=== PATIENT | male | born 1955 | race Caucasian/White ===

== ENCOUNTER → 2019-09-24 08:18 | Outpatient (CLI) | payer MEDICAID | END | disposition home or self-care (01) | LOC: D.RT 08:18 | PROVIDERS: ATTEND Internal Medicine Hematology & Oncology | DX: R91.1 Solitary pulmonary nodule (principal) ==

== ENCOUNTER → 2019-10-14 12:26 | Outpatient (CLI) | payer MEDICAID | END | disposition home or self-care (01) | LOC: D.US 12:26 | PROVIDERS: ATTEND Thoracic Surgery (Cardiothoracic Vascular Surgery) | DX: R59.0 Localized enlarged lymph nodes (principal) ==

== ENCOUNTER → 2019-10-20 11:36 | Outpatient (CLI) | payer MEDICAID ==
--- NOTE | ~2019-10-20 | EC ---
PATIENT:KEM JAIMESS DATE OF SERVICE: 10/20/19 SEX: M MEDICAL RECORD: [id number] DATE OF : [birth year] [facility] AGE OF PATIENT: 64 ADMISSION DATE: 10/20/19 REFERRING PHYSICIAN: INTERPRETING PHYSICIAN: ROSE MARIE MONTERO MD ECHOCARDIOGRAM REPORT ECHO CHARGES 4 ECHO COMPLETE Date: 10/20/19 CLINICAL DIAGNOSIS: GRAY/ANGINA/MURMUR H/O CAD/HTN ECHOCARDIOGRAPHIC MEASUREMENTS (adult normal given) AC root (d.<3.7cm) 3.6 cm LV Septum d (<1.2 cm> 1.8 cm Valve Excursion 2.0 cm LV Septum (systole) 2.3 cm Left Atria (s.<4.0cm> 3.5 cm LVPW d(<1.2cm) 1.6 cm RV (d.<2.3cm) 2.2 cm LVPW (sytole) 2.1 cm LV diastole(<5.6CM) 5.7 cm MV E-F(>70mm/sec) cm LV systole 3.6 cm LVOT Diameter 2.4 cm MV exc.(>10mm) cm Est.ejection fraction (50-75%) % DOPPLER: LVIT cm/sec A 104 cm/sec E 88.0 cm/sec LA cm/sec RVSP 21.4 mmHg LVOT 84.0 cm/sec AOP1/2T m/s Asc. Ao 149 cm/sec RVOT 80.0 cm/sec RA cm/sec PA 114 cm/sec AV Gradient Peak 8.8 mmHg AV Mean 4.0 mmHg AV Area 2.7 cm MV Gradient Peak 6.4 mmHg MV Mean 2.0 mmHg MV Area cm COMMENTS: OP - HC Regenerator Operator: 1 JUS SUZANNA Jewel Bearing Broacher: 3 Dr. Ulloa TAPE# PACS Pericardial Effusion N DATE OF SERVICE: Adequate 2D, color flow imaging, spectral Doppler, and M-Mode. LVH is present. LV internal dimensions are normal. Wall motion is normal. EF is greater than or equal to 55%. Aortic valve is tricuspid. No evidence of stenosis by Doppler interrogation. Left atrium is normal at 3.5 cm. Mitral valve shows no prolapse. Trace MR. Right-sided chambers are grossly normal. Trace TR. ECHOCARDIOGRAM REPORT [id number] MASTERNICOLÁS Barba TRANSINT:[id number] Voice Confirmation ID: [id number] DOCUMENT ID: [id number] ROSE MARIE MONTERO MD CC: [id number] DICTATION DATE: 10/21/191412 SOCK LINER: 10/21/191906 DEP CLI 10/20/19 [facility] [address] [place] [address]
== END | disposition home or self-care (01) ==
LOC: D.HCCECHO 11:30
PROVIDERS: ATTEND Internal Medicine Interventional Cardiology
DX: R01.1 Cardiac murmur, unspecified (principal)

== ENCOUNTER → 2019-10-22 08:36 | Outpatient (CLI) | payer MEDICAID | END | disposition home or self-care (01) | LOC: D.HCCECHO 10-19 11:00 | PROVIDERS: ATTEND Internal Medicine Cardiovascular Disease | DX: R01.1 Cardiac murmur, unspecified (principal); I25.10 Atherosclerotic heart disease of native coronary artery without angina pectoris ==

== ENCOUNTER 2019-11-04 11:56 | Outpatient (CLI) | payer MEDICAID ==
[~2019-11-04] VITALS: Ht 182.9 cm; Wt 75.0 kg
--- NOTE | ~2019-11-04 | HEMODYNAMI ---
PATIENT:NICOLÁS JAIMES MEDICAL RECORD: [id number] : 59 LOCATION:[facility] ADMISSION DATE: 11/04/19 Generatedon:11/04/201915:55 Patient name: NICOLÁS JAIMES Patient #: [id number] SSN: : 1955 Date of study: 11/04/2019 Page: Of Hemodynamic Procedure Report Patient Data Patient Demographics Procedure consent was obtained First Name: NICOLÁS Gender: Male Last Name: FIONA : 1955 Patient #: [id number] Age: 64 year(s) Race: Additional ID: [id number] Contact details Address: [address] [place] [address] State: [place] City: [place] Zip code: [address] Past Medical History Allergies: No known allergies Admission Admission Data Admission Date: 11/04/2019 Admission Time: 11:56 Arrival Date: 11/04/2019 Arrival Time: 0:00 Height (in.): 72.05 BSA: 1.93 (m2) Height (cm.): 183 BMI: 21.5 (kg/m2) Weight (lbs.): 158.73 Weight (kg.): 72 Lab Results Lab Result Date: 11/04/2019 Lab Result Time: 0:00 Biochemistry Name Units Result Min Max BUN mg/dl 17 --(---*)-- 7 18 Creatinine mg/dl 1.1 --(--*-)-- 0.6 1.3 eGFR ml/min 72 *-(----)-- 90 120 NONAFRICAN CBC Name Units Result Min Max Hematocrit % 38.5 *-(----)-- 42 54 Hemoglobin g/dl 12.4 *-(----)-- 13.5 17.5 Procedure Procedure Types Cath Procedure Diagnostic Procedure C [facility] w/Coronaries Sedation Charges Moderate Sedation up to 45 minutes PCI Procedure Coronary Stent Coronary Stent Initial Hemochron ACT Test Peripheral Cath Diagnostic Procedure 4-Vessel Bilateral Carotid Arteriogram Procedure Description Procedure Date Procedure Date: 11/04/2019 Procedure Start Time: 14:42 Procedure End Time: 15:32 Procedure Staff Name Function Christopher Rhodes MD Performing Physician Idalia Floyd RT Scrub Steph Lopes RT Monitor Fernanda Moura RN Nurse Indication Recurrent angina Procedure Data Cath Procedure Fluoroscopy Diagnostic fluoroscopy Total fluoroscopy Time: time: 16.3 min 16.3 min Diagnostic fluoroscopy Total fluoroscopy dose: dose: 2595 mGy 2595 mGy Contrast Material Contrast Material Type Amount (ml) Isovue 300 240 Entry Location Entry Primary Successful Side Size Upsize Upsize Entry Closure Succes sful Closure Location (Fr) 1 (Fr) 2 (Fr) Remarks Device Remarks Femoral Right 5 Fr 6 Fr Exoseal artery Short Estimated blood loss: 10 ml Diagnostic catheters Device Type Used For End Catheter Placement MULTIPACK JL 4.0 5Fr Left Coronary catheter Angiography MULTIPACK 3DRC 5Fr Right Coronary catheter Angiography MULTIPACK Pigtail 5 Fr LV Angiography catheter Procedure Complications No complications Procedure Medications Medication Administration Route Dosage 0.9% NaCl I.V. 100 ml/hr Oxygen etCO2 Nasal cannula 2 l/min Lidocaine 2% added to field 20 Heparin Flush Bag added to field 2 bags (1000units/500ml NS) Versed I.V. 2 mg Fentanyl I.V. 50 mcg Heparin Bolus I.V. 5000 units Integrilin (Bolus I.V. 6.2 ml 2mg/ml) Integrilin (Bolus wasted 3.8 ml 2mg/ml) Plavix P.O. 600 mg Fentanyl I.V. 50 mcg Versed I.V. 2 mg Fentanyl I.V. 50 mcg Versed I.V. 2 mg Fentanyl I.V. 50 mcg Lopressor I.V. 2.5 mg Morphine I.V. 4 mg Hemodynamics Rest BSA: 1.93 (m2) HGB: 12.4 (g/dl) O2 Consumption: Estimated: 236.25 (ml/min) O2 Co nsumption indexed: Estimated:122.41 (ml/min/m) Heart Rate: 84 (bpm) Pressure Samples Time Site Value (mmHg) Purpose Heart Use Rate(bpm) 14:52 LV 148/14,20 Snapshot 79 Gradients Valve Time Site Site Mean SEP/DFP Peak To Heart Use 1 2 (mmHg) (sec/min) Peak Rate (mmHg) (bpm) Aortic 14:52 LV AO 84 Snapshots Pre Cath Intra NCS Post Cath Vital Signs Time Heart Resp SPO2 etCO2 NIBP (mmHg) Rhythm Pain Status Sedation Rate (ipm) (%) (mmHg) Level (bpm) 14:24:17 80 16 98 23.9 171/92(139) NSR 0 (11) , No 10(A) pain 14:28:28 78 14 97 27.6 161/86(134) NSR 0 (11) , No 10(A) pain 14:32:44 77 11 96 19.4 163/94(132) NSR 0 (11) , No 10(A) pain 14:37:02 71 15 98 21.6 158/76(115) NSR 0 (11) , No 10(A) pain 14:41:25 69 13 97 29.9 140/72(111) NSR 0 (11) , No 10(A) pain 14:45:31 73 10 96 16.4 131/77(111) NSR 0 (11) , No 10(A) pain 14:50:30 92 11 96 26.9 Measuring NSR 0 (11) , No 10(A) pain 14:50:35 86 11 96 29.9 152/77(108) NSR 0 (11) , No 10(A) pain 14:54:47 79 15 96 29.9 140/90(106) NSR 0 (11) , No 10(A) pain 14:59:03 79 14 95 31.3 142/70(115) NSR 0 (11) , No 10(A) pain 15:03:26 79 14 96 27.6 129/68(108) NSR 0 (11) , No 10(A) pain 15:07:36 78 15 95 29.9 132/74(104) NSR 0 (11) , No 10(A) pain 15:11:39 90 14 96 25.4 148/96(122) NSR 0 (11) , No 10(A) pain 15:16:36 74 11 96 32.9 135/103(119) NSR 8 (11) , 10(A) Utterly horrible 15:20:44 70 10 95 20.9 147/88(122) NSR 4 (11) , 10(A) Distressing 15:24:54 76 11 96 32.1 137/94(125) NSR 4 (11) , 10(A) Distressing 15:29:04 74 12 98 11.2 150/87(113) NSR 6 (11) , 10(A) Intense Medications Time Medication Route Dose Verified Delivered Reason Notes Effectiveness by by 14:32:30 0.9% NaCl I.V. 100 Christopher Fernanda used for ml/hr [facility] Moura procedure MD NARANJO 14:32:35 Oxygen etCO2 2 Christopher Fernanda used for Nasal l/min Fredonia Martell procedure cannula MD NARANJO 14:32:40 Lidocaine 2% added 20ml Crhistopher White for local to vial [facility] anesthetic field MD HERNANDEZ 14:32:44 Heparin Flush added 2 Christopher Guerraory used for Bag to bags [facility] procedure (1000units/500ml field MD HERNANDEZ NS) 14:41:03 Versed I.V. 2 mg Christopher Fernanda for sedation [facility] Mou[facility] MD, RN 14:41:13 Fentanyl I.V. 50 Christopher Fernanda for sedation mcg [facility] William Moura MD, RN 14:47:18 Fentanyl I.V. 50 Christopher Fernanda for sedation [facility] William Moura MD, RN 14:52:49 Heparin Bolus I.V. 5000 Christopher Fernanda for verif ied units [facility] anticoagulation with Dr. HERNANDEZ RN [place] 14:53:02 Integrilin I.V. 6.2 Christopher Fernanda for (Bolus 2mg/ml) ml [facility] Moura antiplatelet RN therapy 14:53:12 Integrilin wasted 3.8 Christopher Fernanda for (Bolus 2mg/ml) ml [facility] Mou[facility] antiplatelet RN therapy 14:53:18 Fentanyl I.V. 50 Christopher Fernanda for sedation mcg [facility] William Moura MD, RN 14:53:19 Plavix P.O. 600 Christopher Fernanda for mg [facility] Moura antiplatelet RN therapy 14:53:53 Versed I.V. 2 mg Christopher Fernanda for sedation [facility] Mou[facility] MD, RN 15:09:46 Lopressor I.V. 2.5 Christopher Fernanda Per physician mg [facility] William Moura MD, RN 15:20:26 Versed I.V. 2 mg Christopher Fernanda for sedation [facility] Mou[facility] MD, RN 15:20:31 Fentanyl I.V. 50 Christopher Fernanda for sedation [facility] William Moura MD RN 15:30:53 Morphine I.V. 4 mg Christopher Michael for chest pain [facility] Moura MD business programmer Log Time Note 14:13:38 Fernanda Moura RN sent for patient. Start room use. 14:17:37 Informed consent obtained and on chart 14:18:29 Indication : Recurrent angina 14:18:35 Procedure Status Elective Heart Cath (OP). 14:18:41 Time tracking: Regular hours (M-F 7:00 - 5:00) 14:18:48 Plan of Care:Hemodynamics will remain stable., Cardiac rhythm will remain stable., Comfort level will be maintained., Respiratory function will remain adequate., Patient/ family verbilizes understanding of procedure., Procedure tolerated without complication., Recovers from procedure without complications.. 14:18:56 Patient received from Pre/Post Procedure Room to [facility] 2 Alert and oriented. Tansferred to table in Supine position. 14:18:59 Correct patient and procedure confirmed by team. 14:18:59 Warm blankets applied, and ayesha hugger turned on for patient comfort. 14:19:01 ECG and BP/O2 sat monitors applied to patient. 14:23:06 Vital chart was started 14:23:06 Baseline sample Acquired. 14:23:14 Rhythm: sinus rhythm 14:23:17 - 14:23:17 Full Disclosure recording started 14:23:25 H&P Date Dictated: 11/04/2019 H&P Addendum completed by physician on day of procedure. (MUST COMPLETE FOR ALL OUTPATIENTS), New H&P dictated by physician.. 14:23:26 Pre-procedure instructions explained to patient. 14:23:27 Pre-op teaching completed and patient verbalized understanding. 14:23:30 Family in patients room. 14:23:32 Patient NPO since Midnight. 14:23:41 Patient allergic to No known allergies 14:23:50 Is the patient allergic to Iodine/contrast media? No. 14:23:53 Was the patient premedicated? Yes 14:24:23 Is patient on blood thinner?No 14:24:27 Patient diabetic? No. 14:24:34 ----Pre-sedation anethsthesia assessment.---- 14:24:39 Previous problem with sedation/anesthesia? No ? 14:24:42 Snore? Yes 14:24:44 Sleep apnea? Yes 14:24:50 Deviated septum? Unknown 14:24:53 Opens mouth fully? Yes 14:24:57 Sticks out tongue? Yes 14:25:34 Airway obstruction? Yes LUNG CA/SLEEP APNEA/ NO CPAP 14:25:38 Dentures? No ? 14:25:47 Pre procedure: right dorsailis pedis pulse 1+ Palpable, but thready & weak; easily obliterated 14:25:58 IV patent on arrival in left forearm with 0.9% NaCl at [facility]. 14:26:45 Lab Result : Hemoglobin 12.4 g/dl 14::45 Lab Result : Hematocrit 38.5 % 14::45 Lab Result : eGFR NONAFRICAN 72 ml/min 14::45 Lab Result : BUN 17 mg/dl 14::45 Lab Result : Creatinine 1.1 mg/dl 14:26:52 Lab results completed and on chart. 14:27:20 Stress Test: yes; abnormal ALL AREAS 14:32:05 Risk of Mortality: 0.2 14:32:09 Risk of blood transfusion: 0.5 14:32:14 Risk of LYDIA: 1.5 14:32:20 Right groin area was prepped with chlora-prep and draped in sterile fashion 14:32:22 Alarms reviewed by R. N. 14:32:23 Sharps counted by scrub and verified by R.N. 14:32:28 Physician arrived 14:32:30 0.9% NaCl 100 ml/hr I.V. was administered by Fernanda Moura RN; used for procedure; Verbal order read back and verified. 14:32:35 Oxygen 2 l/min etCO2 Nasal cannula was administered by Fernanda Moura RN ; used for procedure; Verbal order read back and verified. 14:32:40 Lidocaine 2% 20ml vial added to field was administered by Christopher Rhodes MD; for local anesthetic; Verbal order read back and verified. 14:32:44 Heparin Flush Bag (1000units/500ml NS) 2 bags added to field was administered by Christopher Rhodes MD; used for procedure; Verbal order read back and verified. 14:34:11 Use device set Femoral Dx 14:34:14 ACIST Syringe (90049) opened to sterile field. 14:34:15 Bag Decanter (2002S) opened to sterile field. 14:34:17 Medline Cath Pack ([id number]) opened to sterile field. 14:34:18 ACIST Hand Control (04526) opened to sterile field. 14:34:19 ACIST Manifold (34673) opened to sterile field. 14:34:21 DIAGNOSTIC Multipack 5Fr catheter set (TD9316) opened to sterile field. 14:34:22 Tegaderm 4 x 4 (1626W) opened to sterile field. 14:34:25 EMERALD Guide Wire (502-910) opened to sterile field. 14:34:25 SHEATH 5FR Vale (JZK101) opened to sterile field. 14:34:40 Arrival Date: 11/04/2019 12:00:00 AM 14:34:51 Patient Height : 72.05 inches 14:34:57 Patient Weight : 158.73 lbs 14:38:56 Zero performed for pressure channel P1 14:40:03 --------ALL STOP TIME OUT------ 14:40:04 Final Timeout: patient, procedure, and site verified with staff and physician. All members of the team are in agreement. 14:40:07 Right groin site verified by team. 14:40:13 Fire Safety Assessment: A--An alcohol-based skin anteseptic being used preoperatively., C--Open oxygen or nitrous oxide is being used., D--An ESU, laser, or fiber-optic light is being used. 14:40:22 Physical assessment completed. ASA score P 3 - A patient with severe systemic disease as per Christopher Rhodes MD. 14:40:31 2) 60-89 Mildly reduced kidney function, and other findings (as for stage 1) point to kidney disease. 14:40:37 Maximum allowable contrast dose (3.7 X eGFR X 0.75)199 ml. 14:40:43 Sedation plan: IV Moderate Sedation Medication:Versed, Fentanyl 14:41:03 Versed 2 mg I.V. was administered by Fernanda Moura RN; for sedation; Verbal order read back and verified. 14:41:13 Fentanyl 50 mcg I.V. was administered by Fernanda Moura RN; for sedation ; Verbal order read back and verified. 14:42:02 Procedure started. 14:42:24 Local anesthetic to right femoral artery with Lidocaine 2% by Christopher Thomas MD.INITIAL ACCESS ONLY 14:44:10 A 5 Fr sheath was inserted into the Right Femoral artery 14:44:29 A MULTIPACK JL 4.0 5Fr catheter was advanced over the wire and used for Left Coronary Angiography. 14:44:57 LCA angiography performed. 14:45:05 Injector settings: Ml/sec: 3, Volume: 6, 14:46:09 Catheter removed. 14:46:22 A MULTIPACK 3DRC 5Fr catheter was advanced over the wire and used for Right Coronary Angiography. 14:47:09 RCA angiography performed. 14:47:14 Injector settings: Ml/sec: 3, Volume: 6, 14:47:18 Fentanyl 50 mcg I.V. was administered by Fernanda Moura RN; for sedation ; Verbal order read back and verified. 14:48:30 Right carotid angiography performed. 14:48:53 Right carotid angiography performed. 14:50:04 Left carotid angiography performed. 14:50:49 Left carotid angiography performed. 14:51:13 Catheter removed. 14:51:21 A MULTIPACK Pigtail 5 Fr catheter was advanced over the wire and used for LV Angiography. 14:51:31 LV gram done using VAN 14:51:36 Injector settings: Ml/sec: 5, Volume: 15, 14:52:25 LV hemodynamics recorded. 14:52:36 EF : 40 % 14:52:47 Catheter removed. 14:52:49 Heparin Bolus 5000 units I.V. was administered by Fernanda Moura RN; for anticoagulation; verified with Dr. Ulloa Verbal order read back and verified. 14:52:49 SHEATH 6FR Vale (SSD584) opened to sterile field. 14:52:50 WHISPER 300cm guide wire ([id number]) opened to sterile field. 14:52:53 INFLATOR Merit BasixCompak (VQ4269) opened to sterile field. 14:53:02 Integrilin (Bolus 2mg/ml) 6.2 ml I.V. was administered by Fernanda Moura RN; for antiplatelet therapy; Verbal order read back and verified. 14:53:12 Integrilin (Bolus 2mg/ml) 3.8 ml wasted was administered by Fernanda Moura RN; for antiplatelet therapy; Verbal order read back and verified. 14:53:18 Fentanyl 50 mcg I.V. was administered by Fernanda Moura RN; for sedation ; Verbal order read back and verified. 14:53:19 Plavix 600 mg P.O. was administered by Fernanda Moura RN; for antiplatelet therapy; Verbal order read back and verified. 14:53:25 GUIDE 6FR XBLAD 3.5 catheter ([id number]) opened to sterile field. 14:53:34 Proceeding to intervention. 14:53:42 ACC Pre-intervention KIRK Flow is 3. 14:53:53 Versed 2 mg I.V. was administered by Fernanda Moura RN; for sedation; Verbal order read back and verified. 14:54:17 Sheath upsized to a 6 Fr Short. 14:56:10 Pre PCI Site: [place] mCirc has 80% stenosis. 14:56:20 6 Fr XBLAD3.5 guide catheter was inserted over the wire 14:56:31 WHISPER 300 wire advanced. 15:02:05 BMW 300cm [place] 2 J wire ([id number]) opened to sterile field. 15:02:57 Wire removed. 15:03:10 OAF160 wire advanced. 15:09:46 Lopressor 2.5 mg I.V. was administered by Fernanda Moura RN; Per physician; Verbal order read back and verified. 15:11:22 The EMERGE OTW 3.0 x 15 balloon ([id number]) was advanced and then removed because of failure to cross lesion 15:14:38 Wire advanced across lesion. 15:15:45 Balloon re-inserted over wire. 15:16:35 Inflate balloon Inflation number: 1 A EMERGE OTW 3.0 x 15 balloon ([id number]) was prepped and advanced across the Mid CX1 , then inflated to 6 RONNY for 0:00 (min:sec) . 15:16:38 Inflation number: 2 The EMERGE OTW 3.0 x 15 balloon ([id number]) was reinflated across the Mid CX1 , to 6 RONNY for 0:00 (min:sec) . 15:16:55 Inflation number: 3 The EMERGE OTW 3.0 x 15 balloon ([id number]) was reinflated across the Mid CX1 , to 6 RONNY for 0:00 (min:sec) . 15:17:46 Balloon removed over the wire. 15:20:04 Place stent Inflation Number: 1 A INTEGRITY RX 2.5 x 18 stent ([id number]) was prepped and advanced across the Mid CX . The stent was deployed at 14 RONNY for 0:18 (min:sec) . 15:20:26 Versed 2 mg I.V. was administered by Fernanda Moura RN; for sedation; Verbal order read back and verified. 15:20:31 Fentanyl 50 mcg I.V. was administered by Fernanda Moura RN; for sedation ; Verbal order read back and verified. 15:20:38 Inflation number: 2 The stent balloon was then re-inflated across the Mid CX to 14 RONNY for 0:00 (min:sec) . 15:21:34 Stent catheter was removed intact over wire. 15:24:06 BMW 300 wire advanced. 15:25:54 Place stent Inflation Number: 3 A INTEGRITY RX 3.0 x 18 stent ([id number]) was prepped and advanced across the Mid CX . The stent was deployed at 14 RONNY for 0:29 (min:sec) . 15:26:36 EXOSEAL 6Fr (EX600) opened to sterile field. 15:26:44 Stent catheter was removed intact over wire. 15:26:47 Wire removed. 15:26:48 Guide catheter removed. 15:27:00 Post PCI Site: [place] mCirc has 0% stenosis. 15:27:06 ACC Post-intervention KIRK Flow is 3. 15:27:31 Sheath removed intact; hemostasis achieved with Exoseal to the Right Femoral artery. 15:27:42 Contrast amount:Isovue 300 240ml. 15:27:45 Maximum allowable dose exceeded? Yes. 15:27:47 Sharps counted by scrub and verified by R.N. 15:27:48 Procedure ended.(Physican Out) 15:28:24 Fluoroscopy time 16.30 minutes. ::37 Fluoroscopy dose: 2595 mGy 15::37 Flurop Dose total: 2595 15::52 Dose Area Product 413551 mGy/cm. 15:28:57 Insertion/operative site no bleeding no hematoma. 15:29:04 Post-op/insertion site Right Femoral artery dressed using a 4 x 4 and Tegaderm. 15:29:09 Post right femoral artery:stable 15::17 Post-procedure physical assessment completed. ASA score P 3 - A patient with severe systemic disease as per Christopher Rhodes MD. 15::28 Post procedure rhythm: sinus rhythm 15::32 Estimated blood loss: 10 ml 15::35 Post procedure instruction explained to patient.Patient verbalizes understanding. 15:29:36 Patient needs reinforcement of post procedure teaching. 15::53 Morphine 4 mg I.V. was administered by Fernanda Moura RN; for chest pain ; Verbal order read back and verified. 15:31:29 Procedure type changed to Cath procedure, Diagnostic procedure, LHC, LH C w/Coronaries, Sedation Charges, Moderate Sedation up to 45 minutes, PCI procedure, Coronary Stent, Coronary Stent Initial, Hemochron ACT Test, Peripheral Cath Diagnostic Procedure, 4-Vessel, Bilateral Carotid Arteriogram 15::31 Procedure and supply charges have been captured, reviewed, submitted an d are correct. 15::56 ACT drawn and resulted at 197 seconds. (normal therapeutic range 180-24 0 seconds). 15:32:13 Procedure Complication : No complications 15:32:17 Vital chart was stopped 15:32:24 [facility] Findings: MVD- PCI performed (see procedure note) 15:32:36 4Vessel Findings: mild to moderate disease (<70%, see procedure notes) 15:32:38 Operative report dictated upon procedure completion. 15:32:40 See physician's report for complete and final results. 15:32:47 Report given to Pre/Post Procedure Room. 15:32:53 Patient transfered to Pre/Post Procedure Room with Stretcher. 15:32:56 Full Disclosure recording stopped 15:32:56 Procedure ended. 15:33:10 ACC-PCI Only Patient was given prescriptions, or instructed by Christophre Rhodes MD to start/continue the following medications upon discharge: Plavix 15:33:13 End room use (Document Last) Intervention Summary Intervention Notes Time ActionType Lesion and Equipment Action# Pressure Duration Attributes Used 15:11:22 Discard EMERGE OTW Balloon 3.0 x 15 balloon ([id number]) 15:16:35 Inflate Mid CX1 EMERGE OTW 1 6 00:00 balloon 3.0 x 15 balloon ([id number]) 15:16:38 Reinflate Mid CX1 EMERGE OTW 2 6 00:00 balloon 3.0 x 15 balloon ([id number]) 15:16:55 Reinflate Mid CX1 EMERGE OTW 3 6 00:00 balloon 3.0 x 15 balloon ([id number]) 15:20:04 Place stent Mid CX INTEGRITY RX 1 14 00:18 2.5 x 18 stent ([id number]) 15:20:38 Reinflate Mid CX INTEGRITY RX 2 14 00:00 stent 2.5 x 18 balloon stent ([id number]) 15:25:54 Place stent Mid CX INTEGRITY RX 3 14 00:29 3.0 x 18 stent ([id number]) Device Usage Item Name Manufacture Quantity Catalog Number Hospital Part Current Min imal Lot# / Charge Number Stock Stock Serial# Code ACIST Acist 1 44087 873513 486619 [id number] 20 Syringe Medical (23921) Systems Inc Bag Decanter Microtek 1 2001S 380226 55034 860956 5 (2001S) Medical Inc. Medline Cath Medline 1 [id number] 102007 89607 911585 5 Pack ([id number]) ACIST Hand Acist 1 78785 163311 285240 304525 5 Control Medical (95087) Systems Inc ACIST Acist 1 45145 525959 000008 024658 5 Manifold Medical (77149) Systems Inc DIAGNOSTIC Cardinal 1 EQ0086 297825 87277 915492 30 Multipack Health 5Fr catheter set (YW5805) Tegaderm 4 x 3M 1 1626W 861387 295878 527241 5 4 (1626W) SHEATH 5FR Terumo 1 TKN769 346309 856231 365623 5 Vale (DYP619) EMERALD Cardinal 1 502-455 678093 892509 188944 [address] [facility] (502455) MULTIPACK JL Cardinal 1 422882 5 4.0 5Fr Health catheter MULTIPACK Cardinal 1 043394 5 3DRC 5Fr Health catheter MULTIPACK Cardinal 1 624700 5 Pigtail 5 Fr Health catheter SHEATH 6FR Terumo 1 [id number] 135838 299481 844126 40 Vale (FFE367) WHISPER Kennedy 1 [id number] 196905 453197 261561 5 300cm guide Vascular wire ([id number]) INFLATOR Merit 1 KM6441 419504 992439 455824 15 [facility] Medical BasixCompak (UK3620) GUIDE 6FR Cardinal 1 [id number] 772660 082283 125098 10 XBLAD 3.5 Health catheter (81483855) BMW 300cm Kennedy 1 [id number] 460807 927522 122957 5 Boyden 2 Vascular J wire (1914676L) EMERGE OTW [place] 1 [id number] 616617 236042 425431 5 [id number] 3.0 x 15 Scientific balloon ([id number]) INTEGRITY RX Medtronic 1 [id number] 446106 997989 876928 5 [id number] 2.5 x 18 stent ([id number]) INTEGRITY RX Medtronic 1 [id number] 167014 638360 565612 5 [id number] 3.0 x 18 stent ([id number]) EXOSEAL 6Fr Cardinal 1 EX600 636843 722885 233121 10 (EX600) Health Signature Audit Mousie Stage Time Signature Unsigned Intra-Procedure 11/04/2019 Steph Lopes 3:36:45 PM RT(R) (CV) Intra-Procedure 11/04/2019 Fernanda Moura RN 3:37:39 PM Intra-Procedure 11/04/2019 Christopher Moura RN 11/04/2019 3:38:09 PM 3:53:48 PM Intra-Procedure 11/04/2019 Fernanad Moura RN 3:54:56 PM Intra-Procedure 11/04/2019 Christopher Rhodes MD 3:55:34 PM [place] [id number] [facility] [place] [address]
[2019-11-04] MEDS ORDERED: LEVOTHYROXINE75 MCG PO (12:21)
[2019-11-04] MEDS ORDERED: GABAPENTIN300 MG PO (12:21)
[2019-11-04] MEDS ORDERED: PERCOCET 10-321 EAC1 PO ×2 (12:21→12:24)
[2019-11-04] MEDS ORDERED: OMEPRAZOLE40 MG (12:22)
[2019-11-04] MEDS ORDERED: PRAVASTATIN SOD10 MG PO (12:22)
[2019-11-04] MEDS ORDERED: LISINOPRIL30 MG PO (12:22)
[2019-11-04] MEDS ORDERED: ASPIRIN325 MG PO (12:23)
[2019-11-04] MEDS ORDERED: HYDROCODON-ACE1 EA10 PO (12:25)
[2019-11-04 12:32] VITALS: BP 158/81; BMI 21.4
[2019-11-04 13:19] LABS: BASOPHILS 0.4 % (0-2); EOSINOPHILS 1.1 % (0-7); HEMATOCRIT 38.5 % (42.0-54.0); HEMOGLOBIN 12.4 g/dL (13.5-17.5); IMMATURE GRANULOCYTES 1.6 % (0-5); LYMPHOCYTES 26.2 % (15-50); MCHC 32.2 g/dL (31.0-37.0); MEAN PLATELET VOLUME 8.9 fL (7.4-10.4); MONOCYTES 5.2 % (2-11); NEUTROPHILS 65.5 % (40-80); PLATELET COUNT 493 10x3/uL (130-400); RBC 4.28 10x6/uL (4.20-6.10); RDW 18.2 % (11.5-14.5); WBC 10.3 10x3/uL (4.8-10.8)
[2019-11-04 13:24] LABS: ANION GAP 14.6 mmol/L (8-16); CALCIUM 8.9 mg/dL (8.5-10.1); CARBON DIOXIDE 25.7 mmol/L (21.0-32.0); CHOL - HDL RATIO 5.7 ratio (2.3-4.9); CREATININE - SERUM 1.1 mg/dL (0.6-1.3); POTASSIUM - SERUM 4.3 mmol/L (3.5-5.1)
--- NOTE | 2019-11-04 15:42 | NUR ---
PT REC'D TO ROOM 3 VIA STRETCHER FROM LINUX ARCHITECT. MONITORS ESTAB. AT BS, DR. MONTERO HAS BEEN IN TO UPDATE HER ON PLANS TO ADMIT TO PCU. SEE MACHINE BRUSHER. ALARMS ON AND C/L IN REACH.
--- NOTE | 2019-11-04 15:57 | NUR ---
R GROIN SITE SOFT, NO S/S BLEEDING OR HEMATOMA. PULSES PALP.
--- NOTE | 2019-11-04 16:03 | NUR ---
PT C/O CHEST PAIN 01/16 - DR. MONTERO NOTIFIED. PRN MORPHINE GIVEN PER MD ORDER - SEE EMAR.
--- NOTE | 2019-11-04 16:30 | NUR ---
R GROIN SITE SOFT, NO S/S BLEEDING OR HEMATOMA. EKG DONE PER MD ORDER.
--- NOTE | 2019-11-04 16:43 | NUR ---
DR. MONTERO AT BS, UPDATED PT. NEW ORDERS REC'D.
--- NOTE | 2019-11-04 16:53 | NUR ---
REPORT CALLED TO MED 2., WILL TRANSFER PT VIA STETCHER TO RM [id number].
--- NOTE | 2019-11-04 17:03 | NUR ---
PT TAKEN DOWN TO ROOM BY STRETCHER. HANDOFF REPORT GIVEN AT BEDSIDE.
--- NOTE | 2019-11-04 17:15 | NUR ---
NEW PATIENT ADMIT FROM INVESTIGATOR WELFARE VIA STETCHER ACCOMPANIED BY INVESTIGATOR WELFARE STAFF. PATIENT TRANSFERRED TO BED EASILY. PATIENT IS AWAKE AND ALERT. PATIENT DENIES NEEDS BUT COMPLAINS OF CP AT AN 8. MEDICATED PER MAR WITH TORADOL IV. FREQUENT VITAL SIGNS IN PLACE. RT GROIN DRSG C.D.I. NO SIGNS OF BLEEDNING, BRUISING, OR HEMATOMA. WILL CONTINUE TO MONITOR. SR UP X 2 BED IN LOW POSITION AND CALL LIGHT IN REACH. AT BS.
[2019-11-04 18:06] VITALS: BP 158/81; Ht 182.9 cm; Wt 75.0 kg
--- NOTE | 2019-11-04 18:20 | NUR ---
PATIENT LAYING IN BED ON BACK WITH LEGS STRAIGHT , EYES CLOSED AND BREATHING EVENLY. VSS AND PATIENT IS STABLE. WILL CONTINUE TO MONITOR. SR UP X 2 BED IN LOW POSITION AND CALL LIGHT IN REACH.
--- NOTE | 2019-11-04 19:30 | NUR ---
PT IN BED, AAO X 3, RESP EVEN AND UNLABORED. NO DISTRESS NOTED, CL IN REACH, SR UP X 2.
[2019-11-04 20:00] VITALS: BP 124/61
[2019-11-04 21:49] VITALS: BP 124/61
[2019-11-05] VITALS: BP 109/48
--- NOTE | 2019-11-05 01:40 | NUR ---
I have reviewed this patient and I concur with the Shift Assessment completed by the Licensed Practical Nurse today this shift.
[2019-11-05 04:00] VITALS: BP 121/70
--- NOTE | 2019-11-05 07:10 | NUR ---
REPORT RECEIVED FROM COMMUTATOR PRESSER AND PATIENT CARE ASSUMED. PATIENT ALYING IN BED ON BACK AWAKE, ALERT AND ORIENTED X 4. PATIENT STATES THAT HE IS HAVING SOME CHEST PAIN AND BACK PAIN. PATIENT STATES THAT HE DOES NOT WANT MORPHINE. MEDICATATED PATIENT WITH PERCOCET PO. VSS. WILL CONTINUE WITH PLAN OF CARE. SR UP X 2 BED IN LOW POSITION.
[2019-11-05 08:42] VITALS: BP 110/66
[2019-11-05] MEDS ORDERED: PLAVIX75 MG PO (09:35)
[2019-11-05] MEDS ORDERED: HYDROCODON-ACE1 EA10 PO (09:37)
--- NOTE | 2019-11-05 09:56 | NUR ---
WRITTEN SCRIPT FOR NORCO 10/325 MG #12 WITH NO REFILLS COPIED AND PLACED INTO CHART.
--- NOTE | 2019-11-05 12:12 | OP ---
PATIENT NAME: NICOLÁS JAIMES MEDICAL RECORD: [id number] :59 LOCATION:D.[facility] ADMISSION DATE: SURGEON: ROSE MARIE MONTERO MD DATE OF OPERATION: 11/04/2019 PROCEDURE: Left heart catheterization, selective coronary angiography, right femoral artery approach as well as 4-vessel arteriography. CATHETERS: A 5-Syrian sheath, 5/4 left and right Arin, 5/4 pig related to PDA stenting OM. FINDINGS: Left ventriculography in 30-degree VAN view shows anterior apical hypokinesis. Overall, function mildly reduced at 40% to 45%. CORONARY ANATOMY: LEFT MAIN: Left main is free of disease. LAD: Has luminal irregularities with no flow obstructive stenosis. CIRCUMFLEX: Circumflex has a tight stenosis. At the takeoff of OM, the right coronary artery has somewhat diffuse stenosis. CAROTID ANATOMY: The right common carotid was selectively engaged. It showed mild wall disease. The right internal carotid has about 50% stenosis in its proximal portion. Right external carotid is free of disease. Left common carotid has bifurcation. The bulb showed about 50% eccentric stenosis. Left internal carotid, no significant stenosis. Left external carotid, mild wall disease. PLAN: Intervention to circumflex momentarily. . DESCRIPTION OF PROCEDURE: A 5-Syrian sheath was exchanged for 6-Syrian sheath. A XB LAD guide catheter provided good guide catheter support followed by 300 cm Whisper wire to be placed down the ak chin circumflex. We had a proximal dissection in this area with loss of both the circumflex and OM. We were able to rewire down the OM and place 2 sequential stents down this area, total occlusion, no significant residual. KIRK flow improved from 0 to 3. Sheath was closed with ExoSeal device. Plavix was loaded in the lab. TRANSINT:[id number] Voice Confirmation ID: [id number] DOCUMENT ID: [id number] ROSE MARIE MONTERO MD at 1212 CC: [id number] DICTATION DATE: 11/04/19 1537 PUBLIC HEALTH AIDE: 11/05/19 0012 DEP CLI 11/05/19 [id number] [place] [address]
--- NOTE | 2019-11-08 09:10 | DS ---
PATIENT:NICOLÁS JAIMES :59 MEDICAL RECORD: [id number] DISCHARGE SUMMARY ADMISSION DATE: 11/04/19 DISCHARGE DATE: 11/05/19 DATE OF ADMISSION: 11/04/2019. DATE OF DISCHARGE: 11/05/2019. PROBLEM LIST: 1. 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 2. Hypertension. 3. Hyperlipidemia. 4. Obstructive pulmonary disease. 5. Lung carcinoma. 6. Preop pneumonectomy. BRIEF HISTORY AND HOSPITAL COURSE: A 64-year-old gentleman with a history of coronary artery disease, underwent preoperative evaluation. Subsequently, he was found to have circumflex disease. He had a snow plowing of an OM during the procedure. He is in observation for monitoring and pain control. He did well overnight with no arrhythmias. No evidence of other complications, discharged to home in good condition to be on Plavix for 1 month, short course of pain medication for back pain for laying flat overnight. ACTIVITY: As tolerated. DIET: AHA diet. No contraindication of surgery after 1 month. TRANSINT:[id number] Voice Confirmation ID: [id number] DOCUMENT ID: [id number] ROSE MARIE MONTERO MD at 0910 CC: [id number] DICTATION DATE: 11/05/19 08 TAPPER OPERATOR: 11/06/19 0202 DEP CLI 11/05/19 [facility] [address] [place] [address]
== END 2019-11-05 11:02 | disposition home or self-care (01) ==
LOC: D.CATH 11:56 → D.M2 17:03 → D.CATH 11-05 11:02
PROVIDERS: ATTEND Internal Medicine Interventional Cardiology
DX: I25.119 Atherosclerotic heart disease of native coronary artery with unspecified angina pectoris (principal); I10 Essential (primary) hypertension; H54.7 Unspecified visual loss; I67.9 Cerebrovascular disease, unspecified; J44.9 Chronic obstructive pulmonary disease, unspecified; Z72.0 Tobacco use

== ENCOUNTER → 2020-02-25 09:17 | Outpatient (CLI) | payer MEDICAID ==
[2019-11-04 18:06] VITALS: BMI 22.4
[~2020-02-25 09:17] MED LIST: ASPIRIN325 MG PO; GABAPENTIN300 MG PO; HYDROCODON-ACE1 EA10 PO; LEVOTHYROXINE75 MCG PO; LISINOPRIL30 MG PO; OMEPRAZOLE40 MG; PERCOCET 10-321 EAC1 PO; PLAVIX75 MG PO; PRAVASTATIN SOD10 MG PO
== END | disposition home or self-care (01) ==
LOC: D.US 09:17
PROVIDERS: ATTEND Internal Medicine Cardiovascular Disease
DX: I65.22 Occlusion and stenosis of left carotid artery (principal)

== ENCOUNTER → 2020-02-29 11:10 | Outpatient (CLI) | payer MEDICAID ==
[2019-11-04 18:06] VITALS: BMI 22.4
== END | disposition home or self-care (01) ==
LOC: D.CT 11:10
PROVIDERS: ATTEND Internal Medicine Cardiovascular Disease
DX: I65.22 Occlusion and stenosis of left carotid artery (principal)

== ENCOUNTER 2020-03-06 09:06 | Inpatient (IN) | payer MEDICAID ==
[~2020-03-06] VITALS: Ht 188 cm; Wt 74.4 kg
[2020-03-06 11:48] LABS: HEMATOCRIT 29.1 % (42.0-54.0); HEMOGLOBIN 9.2 g/dL (13.5-17.5); MCH 32.1 pg (26.0-34.0); MCHC 31.6 g/dL (31.0-37.0); MCV 101.4 fL (80.0-100.0); MEAN PLATELET VOLUME 9.8 fL (7.4-10.4); RBC 2.87 10x6/uL (4.20-6.10); RDW 22.4 % (11.5-14.5); WBC 10.2 10x3/uL (4.8-10.8)
[2020-03-06 12:00] LABS: ALBUMIN 2.7 g/dL (3.4-5.0); ALKALINE PHOSPHATASE 152 U/L (30-120); ALT (SGPT) 21 U/L (10-68); APTT 31.1 SECONDS (22.8-39.4); BILIRUBIN - TOTAL 0.25 mg/dL (0.2-1.3); CALC OSMOLALITY 267 mosm/kg (275-300); CALCIUM 8.9 mg/dL (8.5-10.1); CARBON DIOXIDE 27.6 mmol/L (21.0-32.0); CHLORIDE - SERUM 99 mmol/L (98-107); CREATININE - SERUM 0.8 mg/dL (0.6-1.3); GLUCOSE 105 mg/dL (74-106); INR 1.12 (0.85-1.17); POTASSIUM - SERUM 4.3 mmol/L (3.5-5.1); PROTEIN - SERUM 6.9 g/dL (6.4-8.2); PROTIME 14.3 SECONDS (11.6-15.0); SODIUM 134 mmol/L (136-145); UREA NITROGEN 13 mg/dL (7-18); eGFR NON AFRICAN AMERICAN > 90 mL/min (90-120)
[2020-03-06 13:20] LABS: BILIRUBIN NEGATIVE (NEGATIVE); KETONE NEGATIVE (NEGATIVE); NITRITE NEGATIVE (NEGATIVE)
[2020-03-07] VITALS (16 sets, daily range): BP systolic 95–132; BP diastolic 38–84; BMI 18.5; BMI 20.2
--- NOTE | 2020-03-07 08:25 | NUR ---
[address] WALTON'S NURSE, DION, OF PT'S LOW HCT/HGB. DION STATED IT WAS A 9 POINT DROP IN HCT SINCE OCTOBER AND THAT SHE WILL NOTIFY DR WALTON OF RECENT LAB.
[2020-03-08] VITALS (23 sets, daily range): BP systolic 103–136; BP diastolic 45–78; Ht 188 cm; Wt 74.4 kg
[2020-03-08 06:25] LABS: BASOPHILS 0.4 % (0-2); EOSINOPHILS 0.8 % (0-7); HEMATOCRIT 28.5 % (42.0-54.0); IMMATURE GRANULOCYTES 0.5 % (0-5); LYMPHOCYTES 20.5 % (15-50); MCH 31.6 pg (26.0-34.0); MCHC 31.6 g/dL (31.0-37.0); MEAN PLATELET VOLUME 10.1 fL (7.4-10.4); MONOCYTES 14.3 % (2-11); NEUTROPHILS 63.5 % (40-80); PLATELET COUNT 229 10x3/uL (130-400); RBC 2.85 10x6/uL (4.20-6.10); RDW 23.1 % (11.5-14.5); WBC 9.2 10x3/uL (4.8-10.8)
[2020-03-08 06:47] LABS: CALC OSMOLALITY 273 mosm/kg (275-300); CALCIUM 8.1 mg/dL (8.5-10.1); CARBON DIOXIDE 27.6 mmol/L (21.0-32.0); CHLORIDE - SERUM 103 mmol/L (98-107); CREATININE - SERUM 0.7 mg/dL (0.6-1.3); GLUCOSE 93 mg/dL (74-106); MAGNESIUM - SERUM 1.8 mg/dL (1.8-2.4); PHOSPHOROUS 3.8 mg/dL (2.5-4.9); POTASSIUM - SERUM 3.8 mmol/L (3.5-5.1); SODIUM 138 mmol/L (136-145); eGFR NON AFRICAN AMERICAN > 90 mL/min (90-120)
[2020-03-08 06:58] LABS: UREA NITROGEN 8 mg/dL (7-18)
--- NOTE | 2020-03-08 07:30 | NUR ---
AWAKE EASILY TO VERBAL STIMULI SKIN WARM AND DRY. LEFT NECK DRESSING DRY AND INTACT. ASKING FOR PAIN MEDS. WILLIS CATH PATENT. ANIRUDH RIGHT RADIAL GOOD WAVE FORM. IV LEFT SUBCLAVIAN INFUSING WITH PLASMALYTE AT 100 ML HOUR. ZINCEF AT 13.8 ML HOUR. MONITOR SR WITH FREQ PAC'S AND OCC PVC'S. STATES BACK, LEGS AND FEET AND INCISION HURTING. HEAD OF BED ELEVATE 30 DEGREES. SCD ON LOWER LEGS WORKING PROPERLY. ELISEO DRAIN COMPRESSED WITH SMALL AMOUNT OF SERSANG DRAINAGE IN CONTAINER.
--- NOTE | 2020-03-08 09:00 | NUR ---
ANIRUDH JAMESON'Krishna PRESSURE HELD FOR 10 MIN. PRESSURE DRESSING APPLIED. NO BLEEDING OR BRUSING OR HEMATOMA NOTED.
--- NOTE | 2020-03-08 09:17 | OP ---
PATIENT NAME: NICOLÁS JAIMES MEDICAL RECORD: [id number] :59 LOCATION:[facility] ADMISSION DATE:03/07/20 SURGEON: JAY WALTON MD DATE OF OPERATION: 03/07/2020 SURGEON: Jay Walton MD PROCEDURE PERFORMED: Left carotid endarterectomy. PREOPERATIVE DIAGNOSIS: Severe left internal carotid artery stenosis. POSTOPERATIVE DIAGNOSIS: Severe left internal carotid artery stenosis plus lung cancer. ANESTHESIA: General endotracheal anesthesia. ESTIMATED BLOOD LOSS: 10 cc. SPECIMENS: Plaque. COMPLICATIONS: None. CONDITION: Stable. DISPOSITION: CV ICU. OPERATIVE FINDINGS: Irregular and severely calcified plaque in the proximal left internal carotid artery. The plaque feathered well distally and a CorMatrix patch was used for closure. OPERATIVE INDICATION: The patient with asymptomatic severe left internal carotid artery stenosis, undergoing workup for lung resection for lung cancer. DESCRIPTION OF PROCEDURE: The patient was brought to the operating suite. General anesthesia was obtained, the patient was prepped and draped. An oblique incision was made in the left neck, taken down through subcutaneous tissue. Common carotid was dissected out and encircled with a vessel loop. Vagus nerve was identified and kept out of harm's way. The external carotid and thyroid branch were encircled with vessel loops. The internal carotid was dissected out. Heparin was given. After the heparin had circulated, back bleeding on the internal carotid was controlled with a vessel loop and a bulldog clamp. Back bleeding on the external carotid was controlled with a vessel loop. Backbleeding and inflow were controlled with a vascular clamp. EEG and cerebral oximetry remained normal for 2 minute therefore an arteriotomy was begun. The common carotid artery taken out to a region of dense calcification into a relatively normal region of the internal carotid. The plaque was divided in the common carotid artery with an eversion endarterectomy of the external carotid and the plaque feathered well distally. Thorough irrigation was undertaken. The arterial wall was somewhat thin and the patient's artery was somewhat small. The CorMatrix patch was fashioned to the appropriate size and sutured along the edge of the arteriotomy. Prior to completing the anastomosis, backbleeding was allowed from all 3 major vessels and then thorough irrigation of the endarterectomy bed ensued. Anastomosis was completed. Flow was restored first to the external carotid and then to the internal carotid. Hemostasis was assured with several patch sutures. Protamine was given. Thorough irrigation OPERATIVE REPORT [id number] NICOLÁS JAIMES was undertaken. Hemostasis was ensured. A drain was placed through a separate stab wound. The neck was then closed in 2 layers including the skin. Dermabond was placed. The needle and sponge counts reported as correct. The patient taken to ICU in stable condition. TRANSINT:[id number] Voice Confirmation ID: [id number] DOCUMENT ID: [id number] JAY WALTON MD at 0917 CC: XENIA RAMIREZ MD [id number] DICTATION DATE: 03/07/20 1510 UNDERWRITING INTERN: 03/08/20 0034 ADM IN [place] [place] [address]
--- NOTE | 2020-03-08 10:50 | NUR ---
WILLIS CATH REMOVED WITHOUT DIFFICULTY. UP IN CHAIR AT BEDSIDE WITH MINIMAL ASSISTANCES. PATIENT TOLERATED WELL.
--- NOTE | 2020-03-08 14:30 | NUR ---
PATIENT ON ROOM AIR, SLEEPING IN CHAIR, PULSE DROPPED INTO LOW 80"S. PATIENT NOT HAPPY ABOUT BEING WAKEN UP TO DEEP BREATH.OXYGEN APPLIED AT 5 LITERS PER NC. TO KEEP PULSE ABOVE 92%
--- NOTE | 2020-03-08 16:46 | NUR ---
VOIDING CLEAR YELLOW URINE IN URINAL. DRESSING LEFT NECK DRY AND INTACT.DRINKS ALOT OF COFFEE. OXYGEN WEANED TO 2 LITERS NC. PATIENT DOES NOT WEAR O2 AT HOME. LOPRESSOR STARTED
--- NOTE | 2020-03-08 18:36 | NUR ---
AMBULATED TO BATHROOM WITH ASSISTANCES VOIDING WITHOUT DIFFICULTY. RETURNED TO BED. DRESSING DRY AND INTACT
[2020-03-09] VITALS (11 sets, daily range): BP systolic 113–141; BP diastolic 55–78
[2020-03-09 06:05] LABS: BASOPHILS 0.2 % (0-2); EOSINOPHILS 1.5 % (0-7); HEMATOCRIT 31.8 % (42.0-54.0); HEMOGLOBIN 10.1 g/dL (13.5-17.5); IMMATURE GRANULOCYTES 0.4 % (0-5); LYMPHOCYTES 19.3 % (15-50); MCH 31.6 pg (26.0-34.0); MCHC 31.8 g/dL (31.0-37.0); MCV 99.4 fL (80.0-100.0); MEAN PLATELET VOLUME 9.8 fL (7.4-10.4); MONOCYTES 15.2 % (2-11); NEUTROPHILS 63.4 % (40-80); PLATELET COUNT 236 10x3/uL (130-400); RDW 22.2 % (11.5-14.5); WBC 9.5 10x3/uL (4.8-10.8)
[2020-03-09 06:27] LABS: CALC OSMOLALITY 277 mosm/kg (275-300); CALCIUM 8.7 mg/dL (8.5-10.1); CHLORIDE - SERUM 104 mmol/L (98-107); CREATININE - SERUM 0.6 mg/dL (0.6-1.3); GLUCOSE 109 mg/dL (74-106); MAGNESIUM - SERUM 1.9 mg/dL (1.8-2.4); PHOSPHOROUS 3.5 mg/dL (2.5-4.9); POTASSIUM - SERUM 3.7 mmol/L (3.5-5.1); SODIUM 140 mmol/L (136-145); UREA NITROGEN 7 mg/dL (7-18); eGFR NON AFRICAN AMERICAN > 90 mL/min (90-120)
[2020-03-09] MEDS ORDERED: LOPRESSOR25 MG PO (09:48)
[2020-03-09] MEDS ORDERED: ASPIRIN81 MG PO (11:05)
[2020-03-09] MEDS ORDERED: HYDROCODON-ACE1 EA10 PO (11:15)
--- NOTE | 2020-03-09 12:35 | NUR ---
1150 CVL REMOVED PER PROTOCOL, PATIENT LAYNIG FLAT IN BED - GOT UP TO CHANGE FOR DC AT 1210. WHEELED OUT TO CAR ( DRIVING) AT 1216.A
--- NOTE | 2020-03-09 23:57 | MORECARE ---
CASE MANAGEMENT DISCHARGE SUMMARY PATIENT: NICOLÁS JAIMES UNIT: [id number] ADM DATE: 03/07/20 AGE: 64 : 59 SEX: M ROOM/BED: [facility] AUTHOR: JOSE F,JAYNE PHYSICIAN: REFERRING PHYSICIAN: ANNALEE WALTON MD DATE OF SERVICE: 03/09/20 Discharge Plan Patient Name: NICOLÁS JAIMES Facility: [facility]:[place] : 1955 Planned Disposition: Home Anticipated Discharge Date: Discharge Date: 03/09/2020 Expected LOS: Initial Reviewer: [email or web address] Initial Review Date: 03/07/2020 Generated: 03/10/20 12:56 am Comments DCP- Discharge Planning Updated by [email or web address]: Cari Escamilla on 03/09/20 10:[address] Patient Name: NICOLÁS JAIMES Admission Status: Elective Accout number: [id number] Admission Date: 03-07-2020 : 1955 Admission Diagnosis:OCCLUSION AND STENOSIS OF LEFT CAROTID ARTERY Attending: ANNALEE WALTON Current LOS: 2 Anticipated DC Date: Planned Disposition: Home Primary Insurance: MEDICAID [place] Discharge Planning Comments: CM met with patient to complete initial dc planning assessment. CM educated patient on the CM role and verbal consent given by patient to complete assessment. Patient lives at home with family. Patient is independent. At discharge patient plans to return home and feels this is a safe discharge. CM discussed availability of home health, rehab services, and medical equipment. Patient will have family to transport home. Patient denied known discharge needs at this time. CM will continue to follow and will assist as needed with dc plans/needs. Mentally Impaired Teacher: Cari Escamilla DCPIA - Discharge Planning Initial Assessment Updated by [email or web address]: Cari Escamilla on 03/09/20 11:53 pm * Is the patient Alert and Oriented? Yes * How many steps to enter\exit or inside your home? * PCP [facility] * [facility] * Preadmission Environment Home with Family * ADLs Independent * Equipment None * List name and contact numbers for known caregivers / representatives who currently or will assist patient after discharge: RICHY HARRELL - DAUGHTER - [phone] * Verbal permission to speak to the caregivers and representatives has been obtained from the patient. Yes * Community resources currently utilized None * Additional services required to return to the preadmission environment? No * Can the patient safely return to the preadmission environment? Yes * Has this patient been hospitalized within the prior 30 days at any hospital? No Patient Name: SHERYA JAIMESFUS Page [id number] at 2357 All edits/amendments must be made on the electronic document DICTATION DATE: 03/09/202355 CLINICAL TRIALS DATA COORDINATOR: MARCELINO 03/09/202355 RPT#: [id number] DC DATE:03/09/20 STATUS: DIS IN [facility] [address] [place] [address] END OF REPORT
== END 2020-03-09 12:16 | disposition home or self-care (01) | DRG 38 ==
LOC: D.CVICU 03-07 06:30 → D.SDCHOLD 03-07 06:30 → D.CVICU 03-07 15:29
PROVIDERS: Family Medicine; ADMIT Thoracic Surgery (Cardiothoracic Vascular Surgery); ATTEND Thoracic Surgery (Cardiothoracic Vascular Surgery)
PROC: 03UL0JZ Supplement Left Internal Carotid Artery with Synthetic Substitute, Open Approach (ICD-10-PCS; 2020-03-07)
PROC: 03CL0ZZ Extirpation of Matter from Left Internal Carotid Artery, Open Approach (ICD-10-PCS; principal; 2020-03-07 10:30)
DX: I65.22 Occlusion and stenosis of left carotid artery (principal); C34.90 Malignant neoplasm of unspecified part of unspecified bronchus or lung; I10 Essential (primary) hypertension; E78.5 Hyperlipidemia, unspecified; E03.9 Hypothyroidism, unspecified; K21.9 Gastro-esophageal reflux disease without esophagitis; M19.90 Unspecified osteoarthritis, unspecified site; G89.29 Other chronic pain; I25.10 Atherosclerotic heart disease of native coronary artery without angina pectoris

== ENCOUNTER → 2020-03-22 10:08 | Outpatient (CLI) | payer MEDICAID ==
[2020-03-08 12:14] VITALS: BMI 21.0
[~2020-03-22 10:08] MED LIST changes: +ASPIRIN81 MG PO; +LIPITOR40 MG PO; +LOPRESSOR25 MG PO
[2020-03-22 10:41] LABS: BASOPHILS 0.3 % (0-2); EOSINOPHILS 2.8 % (0-7); HEMATOCRIT 37.9 % (42.0-54.0); HEMOGLOBIN 12.1 g/dL (13.5-17.5); IMMATURE GRANULOCYTES 0.7 % (0-5); LYMPHOCYTES 24.7 % (15-50); MCH 31.8 pg (26.0-34.0); MCHC 31.9 g/dL (31.0-37.0); MCV 99.7 fL (80.0-100.0); MEAN PLATELET VOLUME 9.4 fL (7.4-10.4); MONOCYTES 7.5 % (2-11); RDW 20.6 % (11.5-14.5); WBC 12.2 10x3/uL (4.8-10.8)
[2020-03-22 10:44] LABS: PLATELET COUNT 208 10x3/uL (130-400)
[2020-03-22 10:50] LABS: BILIRUBIN NEGATIVE (NEGATIVE); KETONE NEGATIVE (NEGATIVE); NITRITE NEGATIVE (NEGATIVE); UROBILINOGEN NORMAL mg/dL (< 2)
== END | disposition home or self-care (01) ==
LOC: D.LAB 10:08
PROVIDERS: ATTEND Thoracic Surgery (Cardiothoracic Vascular Surgery)
DX: R68.89 Other general symptoms and signs (principal)

== ENCOUNTER → 2020-09-13 10:28 | Outpatient (CLI) | payer MEDICAID ==
[2020-03-24 11:37] VITALS: BMI 21.9
[~2020-09-13 10:28] MED LIST changes: +ALBUTEROL SULF8.5 GM INH; +SINGULAIR10 MG PO; +TESSALON PERLE100 MG PO
--- NOTE | 2020-09-14 14:56 | EC ---
PATIENT:SHREYA JAIMESFUS DATE OF SERVICE: 09/13/20 SEX: M MEDICAL RECORD: [id number] DATE OF : 59 [facility] AGE OF PATIENT: 65 ADMISSION DATE: 09/13/20 REFERRING PHYSICIAN: INTERPRETING PHYSICIAN: ROSE MARIE MONTERO MD ECHOCARDIOGRAM REPORT ECHO CHARGES 4 ECHO COMPLETE Date: 09/13/20 CLINICAL DIAGNOSIS: ASSESS EF, HX OF CHF/COPD/CAD RECENT SOB ECHOCARDIOGRAPHIC MEASUREMENTS (adult normal given) AC root (d.<3.7cm) 3.4 cm LV Septum d (<1.2 cm> 0.6 cm Valve Excursion 1.4 cm LV Septum (systole) 0.9 cm Left Atria (s.<4.0cm> 4.2 cm LVPW d(<1.2cm) 1.1 cm RV (d.<2.3cm) 4.2 cm LVPW (sytole) 1.2 cm LV diastole(<5.6CM) 6.7 cm MV E-F(>70mm/sec) cm LV systole 5.8 cm LVOT Diameter 2.0 cm MV exc.(>10mm) 1.4 cm Est.ejection fraction (50-75%) % DOPPLER: LVIT cm/sec A 38.0 cm/sec E 110.0 cm/sec LA cm/sec RVSP 23 mmHg LVOT 88 cm/sec AOP1/2T m/s Asc. Ao 144 cm/sec RVOT 84 cm/sec RA cm/sec PA 121 cm/sec AV Gradient Peak 8.31 mmHg AV Mean 4.11 mmHg AV Area 2.3 cm MV Gradient Peak 6.35 mmHg MV Mean 1.72 mmHg MV Area cm COMMENTS: Esthetician Facialist: 2 JOEL GOLDSTEIN Med Surg Rn: 3 Dr. Ulloa TAPE# PACS Pericardial Effusion N DATE OF SERVICE: Adequate 2D, color flow imaging, spectral Doppler, and M-Mode. FINDINGS: No LVH. LV internal dimensions are dilated. LV is globally hypokinetic with reduced EF, estimated at 30% to 35%. Aortic valve is tricuspid. No evidence of stenosis by Doppler interrogation. Left atrium, mildly dilated at 4.2 cm. Mitral valve shows no prolapse. Mild MR. Right side is grossly normal. Mild TR. ECHOCARDIOGRAM REPORT [id number] MASTERS,NICOLÁS TRANSINT:[id number] Voice Confirmation ID: [id number] DOCUMENT ID: [id number] ROSE MARIE MONTERO MD at 1456 CC: [id number] DICTATION DATE: 09/14/20 1317 PLANT ETIOLOGIST: 09/14/20 1444 DEP CLI 09/13/20 [place] [id number] [place] [id number]
== END | disposition home or self-care (01) ==
LOC: D.HCCECHO 10:28
PROVIDERS: ATTEND Internal Medicine Interventional Cardiology
DX: I50.9 Heart failure, unspecified (principal)